=== PATIENT | female | born 1985 | race Caucasian/White ===

== ENCOUNTER → 2020-12-02 08:14 | Outpatient (CLI) | payer OTHER, SELFPAY ==
[2020-12-02 09:15] LABS: HCG Quantitative /Beta subunit 243.6 mIU/mL
== END ==
PROVIDERS: PCP Family Medicine; Referring Provider Obstetrics & Gynecology; Visit Provider Obstetrics & Gynecology
DX: N91.2 Amenorrhea, unspecified (principal)
CPT/HCPCS: 36415; 84702

== ENCOUNTER → 2020-12-06 08:32 | Outpatient (CLI) | payer OTHER, SELFPAY ==
[2020-12-06 09:38] LABS: HCG Quantitative /Beta subunit 991.8 mIU/mL
[2020-12-06 09:59] LABS: Thyroid Stimulating Hormone 1.63 uIU/mL (0.47-4.68)
== END ==
PROVIDERS: PCP Family Medicine; Referring Provider Obstetrics & Gynecology; Visit Provider Obstetrics & Gynecology
DX: Z34.91 Encounter for supervision of normal pregnancy, unspecified, first trimester (principal)
CPT/HCPCS: 36415; 84144; 84443; 84702

== ENCOUNTER → 2020-12-12 08:28 | Outpatient (CLI) | payer OTHER, SELFPAY ==
[2020-12-12 11:56] LABS: HCG Quantitative /Beta subunit 10486 mIU/mL
== END ==
PROVIDERS: PCP Family Medicine; Referring Provider Obstetrics & Gynecology; Visit Provider Obstetrics & Gynecology
DX: Z34.91 Encounter for supervision of normal pregnancy, unspecified, first trimester (principal)
CPT/HCPCS: 36415; 84702

== ENCOUNTER → 2020-12-19 08:21 | Outpatient (CLI) | payer OTHER, SELFPAY ==
--- NOTE | 2020-12-19 | DI.US.S_ITS ---
PROCEDURE: US OB <= 14 WEEKS FETUS INDICATIONS: INITIAL SIZING AND DATING OUTSIDE/PRIOR DATING DATA: Last menstrual period (LMP): 11/04/20 LMP-based estimated date of delivery (DAYNA): 08/11/21 First dating scan (date and location): 12/19/20, this study. Estimated date of delivery (DAYNA) from first dating scan: 08/12/21, +/-5 days. TECHNIQUE: Real-time scanning was performed of the fetus and maternal pelvic organs, with image documentation. Endovaginal scanning was also performed to better visualize the fetus and maternal ovaries. COMPARISON: None. FINDINGS: Embryo: [place]-rump length 5 mm correlates with a gestational age of 6 weeks 2 days, +/-5 days. Heart rate: 116 beats per minute. Measurement variability in dating: +/- 4 weeks by LMP, +/- 7 days by mean sac diameter (use before 6 weeks gestation if crown-rump length not able to be measured), +/- 5 days by crown-rump length (up to 8 weeks 6 days gestation), +/- 7 days by crown-rump length (up to 13 weeks 6 days gestation). Maternal organs: Normal considering gestational status. IMPRESSION: 6 week 2 day gestational age with delivery date projected to be centered on 08/12/21. Dictated by: Romario Dillon M.D. on 12/19/2020 at 9:19 Approved by: Romario Dillon M.D. on 12/19/2020 at 9:22
== END ==
PROVIDERS: PCP Family Medicine; Referring Provider Obstetrics & Gynecology; Visit Provider Obstetrics & Gynecology
DX: O09.811 Supervision of pregnancy resulting from assisted reproductive technology, first trimester (principal); Z36.87 Encounter for antenatal screening for uncertain dates; Z3A.01 Less than 8 weeks gestation of pregnancy
CPT/HCPCS: 76801; 76817

== ENCOUNTER → 2021-01-02 07:52 | Outpatient (CLI) | payer OTHER, SELFPAY ==
--- NOTE | 2021-01-02 07:53 | DI.US.S_ITS ---
PROCEDURE: US OB <= 14 WEEKS FETUS INDICATIONS: SUPERVISION OF OUTSIDE/PRIOR DATING DATA: Last menstrual period (LMP): 11/04/20. LMP-based estimated date of delivery (DAYNA): 08/11/22. First dating scan (date and location): 12/19/20. Estimated date of delivery (DAYNA) from first dating scan: 08/12/21. TECHNIQUE: Real-time scanning was performed of the fetus and maternal pelvic organs, with image documentation. Endovaginal scanning was also performed to better visualize the fetus and maternal ovaries. COMPARISON: [facility], OB <= 14 WEEKS FETUS, 12/19/2020, 8:33. FINDINGS: Embryo: Single intrauterine fetus is present. [place]-rump length measures 1.3 cm, 7 weeks 4 days. There is complex perigestational focal fluid collection measuring 1.1 x 0.7 x 0.5 cm. Heart rate: None detected. Measurement variability in dating: +/- 4 weeks by LMP, +/- 7 days by mean sac diameter (use before 6 weeks gestation if crown-rump length not able to be measured), +/- 5 days by crown-rump length (up to 8 weeks 6 days gestation), +/- 7 days by crown-rump length (up to 13 weeks 6 days gestation). Maternal organs: Ovaries grossly unremarkable in previous seen presumed left-sided corpus luteum is no longer visualized. The uterus measures 8.4 x 7.2 x 5.7 cm. The right ovary measures 2.4 x 2.2 x 1.6 cm. Left ovary measures 2.6 x 2.4 x 1.5 cm. There is a perigestational hypoechoic complex fluid collection presumably hematoma inferior to the gestational sac measuring 1.1 x 0.7 x 0.5 cm. IMPRESSION: Findings compatible with intrauterine demise. This was discussed with the patient in person at the time of the study. Results are also immediately telephoned to Dr. Ascencio triage nurse at the time of the study on 01/02/21. Small perigestational hemorrhage. Dictated by: Finesse Fregoso M.D. on 01/02/2021 at 10:41 Approved by: Finesse Fregoso M.D. on 01/02/2021 at 10:46
[2021-01-02 09:35] LABS: HCG Quantitative /Beta subunit 93575 mIU/mL
== END ==
PROVIDERS: PCP Family Medicine; Referring Provider Obstetrics & Gynecology; Visit Provider Obstetrics & Gynecology
DX: O09.811 Supervision of pregnancy resulting from assisted reproductive technology, first trimester (principal); O02.1 Missed abortion; Z3A.01 Less than 8 weeks gestation of pregnancy
CPT/HCPCS: 36415; 76801; 76817; 84702

== ENCOUNTER → 2021-01-05 10:10 | Outpatient (CLI) | payer OTHER, SELFPAY ==
[2021-01-05 12:18] LABS: COVID19 -Nasal RAPID Negative (Negative)
== END ==
PROVIDERS: PCP Family Medicine; Visit Provider Obstetrics & Gynecology
DX: Z20.822 Contact with and (suspected) exposure to COVID-19 (principal); Z01.812 Encounter for preprocedural laboratory examination
CPT/HCPCS: 87635

== ENCOUNTER 2021-01-06 15:06 | Day surgery (SDC) | payer OTHER, SELFPAY ==
[2021-01-05 12:03] VITALS: BMI 30.3
--- NOTE | 2021-01-06 | PATH_ITS ---
[facility] Accession Number: [id number] . 01 Material submitted: . product of conception - PRODUCTS OF CONCEPTION . 01 Clinical history: . SDC . 02 Diagnosis: Products of Conception: Chorionic villi present. Background decidualized endometrium. No evidence of neoplasm. MRV 01/10/2021 1239 Local . 02 Electronically signed: . Richie Chacon MD, PhD, Pathologist NPI- [id number] . 01 Gross description: . The specimen is received in formalin, labeled products of conception, and consists of multiple ramos-pink to red-brown fragments of soft tissue and clotted blood measuring 7.5 x 5.0 x 3.5 cm in aggregate. Limited chorionic villi are identified. No parts are identified. Poll Clerk sections are submitted in cassettes [id number]. ([id number]) /[facility] 01/07/2021 1359 Local . 02 Pathologist provided ICD-10: O02.1 . 02 CPT . 424641 Performed at: 01 [facility] [address] [facility], [place], [place] [id number] MD Wali Vann MD Phone: [phone] Performed at: 02 [facility] [address] [place], [place] [id number] MD Macarena Keita MD Phone: [phone]
[2021-01-06] MEDS: ACETAMINOPHEN 325 MG TABLET 975 MG PO (15:10)
[2021-01-06] MEDS: LACTATED RINGERS 1,000 ML 42 ML IV (15:11)
[2021-01-06 15:12] VITALS: BMI 30.3
[2021-01-06 15:17] VITALS: BP 119/77; PULSE 77; RESP 16; TEMP 37.1; O2SAT 99
--- NOTE | 2021-01-06 15:36 | PM.PREOP ---
Pre-operative Note COVID-19 COVID-19 status: Negative Result date/Date tested (Pos, Neg/Pending): 01/05/21 Interval Note History & Physical reviewed/Exam performed by Physician: Yes Changes to H&P: No H&P completed within 30 days and has changed as indicated here:: 01/05/21
--- NOTE | 2021-01-06 15:48 | SUR.OPER ---
Lithotomy on padded OR bed, head on pillow, arms secured on padded arm boards at <90 degrees abduction. Legs secured in padded yellow fins stirrups.
[2021-01-06 16:05] VITALS: BP 107/62; PULSE 74; RESP 16; TEMP 36.6; O2SAT 99
--- NOTE | 2021-01-06 16:06 | PM.GYNOP.1 ---
Operative Date/Time/Diagnoses Date of procedure: 01/06/21 Time of procedure: 16:06 Pre-op diagnosis: Missed Ab at 7 weeks gestation Post-op diagnosis: same Procedure & Clinicians Procedure: Procedures Operation Date: 01/06/21 16:00 Actual Procedure Side Surgeon p Suction Dilation and Curettage Dali Ascencio MD Indications: Missed Ab at 7 weeks gestation Surgeon: Dali Ascencio Anesthesia Type: General (LMA) Operative Notes Findings: 8 week size anteverted uterus Large amount of products of conception Closure Type: not applicable Specimen(s): products of conception Estimated blood loss (mL): 50 Blood products transfused: none Procedure in detail: The patient was taken to the operating room where she was placed in the dorsal supine position. After adequate LMA general anesthesia was achieved the patient was placed in the dorsal lithotomy position, and prepped and draped in the usual sterile fashion. A time-out was performed. A bivalve speculum was placed into the vagina and the anterior lip of the cervix was grasped with a single-tooth tenaculum. Cervical os was sequentially dilated to the # 8 Hegar dilator. The # 7 curved plastic curette passed easily into the endometrial cavity. Several passes with suction revealed a large amount of products of conception and fluid. The catheter was removed. Gentle sharp curettage was performed yielding minimal amount of tissue. Several more passes with suction revealed blood only. The instruments were removed from the uterus. The single-tooth tenaculum was removed from the anterior lip of the cervix. The bivalve speculum was removed from the vagina. Sponge, lap, and instrument counts were correct x2. The patient tolerated the procedure well, and was taken to PACU in stable condition. Complications: none Post-operative Condition: stable Disposition: PACU Plan for aftercare: Home after recovery
[2021-01-06 16:10] VITALS: BP 104/62; PULSE 71; RESP 16; O2SAT 100
[2021-01-06 16:15] VITALS: BP 112/68; PULSE 93; RESP 16; O2SAT 99
[2021-01-06 16:20] VITALS: BP 127/79; PULSE 88; RESP 13; TEMP 37; O2SAT 98
--- NOTE | 2021-01-06 16:20 | SUR.PHASEI ---
report given to Lissette SPENCE.
[2021-01-06 16:30] VITALS: BP 117/63; PULSE 67; RESP 16; TEMP 36.3; O2SAT 100
--- NOTE | 2021-01-06 16:48 | SUR.PHASEI ---
1630 Handover to Nuria Sanders. Pt transferred to OPD.
--- NOTE | 2021-01-06 17:17 | SUR.PHASEII ---
Nursing communication: Called Dr Ascencio to clarify patients RH status. Dr Ascencio stated pt is RH+ and no Rhogam injection needed.
== END 2021-01-06 17:00 | disposition home or self-care (01) ==
PROVIDERS: PCP Family Medicine; Referring Provider Obstetrics & Gynecology; Visit Provider Obstetrics & Gynecology
PROC: (CPT 58120; principal; 2021-01-06 16:00)
DX: O02.1 Missed abortion (principal)
CPT/HCPCS: 59820; J1100; J1885; J2250; J2405; J2704

== ENCOUNTER → 2021-01-23 08:47 | Outpatient (CLI) | payer OTHER, SELFPAY ==
[2021-01-23 10:44] LABS: HCG Quantitative /Beta subunit 82.4 mIU/mL
== END ==
PROVIDERS: PCP Family Medicine; Referring Provider Obstetrics & Gynecology; Visit Provider Obstetrics & Gynecology
DX: O02.1 Missed abortion (principal)
CPT/HCPCS: 36415; 84702

== ENCOUNTER → 2021-02-01 08:21 | Outpatient (CLI) | payer OTHER, SELFPAY ==
[2021-02-01 09:19] LABS: HCG Quantitative /Beta subunit 28.5 mIU/mL
== END ==
PROVIDERS: PCP Family Medicine; Referring Provider Obstetrics & Gynecology; Visit Provider Obstetrics & Gynecology
DX: O02.1 Missed abortion (principal)
CPT/HCPCS: 36415; 84702

== ENCOUNTER → 2021-02-08 08:39 | Outpatient (CLI) | payer OTHER, SELFPAY ==
[2021-02-08 10:03] LABS: HCG Quantitative /Beta subunit 10.9 mIU/mL
== END ==
PROVIDERS: PCP Family Medicine; Referring Provider Obstetrics & Gynecology; Visit Provider Obstetrics & Gynecology
DX: O02.1 Missed abortion (principal)
CPT/HCPCS: 36415; 84702

== ENCOUNTER → 2021-02-15 08:43 | Outpatient (CLI) | payer OTHER, SELFPAY ==
[2021-02-15 10:34] LABS: HCG Quantitative /Beta subunit 6.4 mIU/mL
== END ==
PROVIDERS: PCP Family Medicine; Referring Provider Obstetrics & Gynecology; Visit Provider Obstetrics & Gynecology
DX: O02.1 Missed abortion (principal)
CPT/HCPCS: 36415; 84702

== ENCOUNTER → 2021-03-01 08:51 | Outpatient (CLI) | payer OTHER, SELFPAY ==
[2021-03-01 10:50] LABS: HCG Quantitative /Beta subunit < 2.4 mIU/mL
== END ==
PROVIDERS: PCP Family Medicine; Referring Provider Obstetrics & Gynecology; Visit Provider Obstetrics & Gynecology
DX: O02.1 Missed abortion (principal)
CPT/HCPCS: 36415; 84702

== ENCOUNTER → 2021-03-27 12:44 | Outpatient (CLI) | payer OTHER, SELFPAY ==
--- NOTE | 2021-03-27 12:45 | DI.RAD.S_ITS ---
PROCEDURE: HL HYSTEROSAPINGOGRAPHY INDICATIONS: Treatment Monitoring for surrogacy COMPARISON: None. FINDINGS: Patient had a documented negative test prior to the study. Following speculum insertion, a balloon-tip catheter was inserted into the cervical canal, and secured by inflating the balloon. Contrast was then injected into the endometrial canal. Uterus: The uterine cavity appears normal in size and morphology, without synechiae or masses. Fallopian tubes: Both fallopian tubes fill with contrast, and appear normal in caliber and morphology. There is ready dispersion of contrast into the peritoneal cavity. IMPRESSION: Normal hysterosalpingogram. Dictated by: Amelia Velásquez MD, PhD on 03/27/2021 at 14:51 Approved by: Amelia Velásquez MD, PhD on 03/27/2021 at 14:52
== END ==
PROVIDERS: PCP Family Medicine; Referring Provider Obstetrics & Gynecology; Visit Provider Obstetrics & Gynecology
DX: Z33.3 Pregnant state, gestational carrier (principal); N97.8 Female infertility of other origin
CPT/HCPCS: 58340; 74740

== ENCOUNTER → 2021-04-10 07:39 | Outpatient (CLI) | payer OTHER, SELFPAY ==
--- NOTE | 2021-04-10 07:43 | DI.US.S_ITS ---
PROCEDURE: US PELVIC COMPLETE INDICATIONS: Surrogacy Planning, see scanned docs for instr TECHNIQUE: Real-time scanning was performed of the pelvic organs, with image documentation. Additional endovaginal scanning was necessary due to incomplete visualization of the adnexal and endometrial structures by transabdominal scanning. COMPARISON: [facility], US, US PELVIC COMPLETE, 03/29/2021, 12:26. FINDINGS: Uterus: Uterus is anteverted and normal in size at 8 x 4.7 x 3.4 cm. The myometrium is homogeneous. No fibroids identified. The endometrium measures 2 mm combined thickness. Cervix is within normal limits. Ovaries: The ovaries have a normal sonographic appearance. No adnexal masses are seen. A few ovarian follicles. -Dominant right ovarian follicle measuring 1 x 1 x 0.7 cm. -Largest left ovarian follicle measuring 0.5 x 0.4 cm. The right ovary measures 3.8 x 1.8 x 1.6 cm, with a calculated ovarian volume of 6 cc. The left ovary measures 2.7 x 2.5 x 1.5 cm, with a calculated ovarian volume of 5 cc. Other: No pathologic free abdominal or pelvic fluid. IMPRESSION: 1. Dominant right ovarian follicle measuring 1 cm. Largest left ovarian follicle measuring 0.5 cm. A few ovarian follicles. 2. Anteverted uterus. Endometrium measures 2 mm. We strive to produce accurate, complete, and clear reports of imaging services. To assist us in improving patient care, this report was composed using standard report templates and voice recognition software. Therefore, it may contain abnormal punctuation, insertions and/or omissions. Occasional wrong-word or sound-alike substitutions may occur. Though we review the report and make efforts to correct it, we do recommend that the report be read carefully in proper context to recognize any text inaccuracies. Dictated by: Addi Lion M.D. on 04/10/2021 at 8:38 Approved by: Addi Lion M.D. on 04/10/2021 at 8:44
[2021-04-10 09:21] LABS: Progesterone, Total 0.68 ng/mL
[2021-04-10 09:37] LABS: Estradiol, Total 20.4 pg/mL
== END ==
PROVIDERS: PCP Family Medicine; Referring Provider Obstetrics & Gynecology; Visit Provider Obstetrics & Gynecology
DX: N97.8 Female infertility of other origin (principal)
CPT/HCPCS: 36415; 76830; 76856; 82670; 84144

== ENCOUNTER → 2021-04-20 07:52 | Outpatient (CLI) | payer OTHER, SELFPAY ==
--- NOTE | 2021-04-20 07:55 | DI.US.S_ITS ---
PROCEDURE: US PELVIC COMPLETE INDICATIONS: SURROGACY PLANNING. EVALUATE LARGEST FOLLICLES BILATERAL TECHNIQUE: Real-time scanning was performed of the pelvic organs, with image documentation. Additional endovaginal scanning was necessary due to incomplete visualization of the adnexal and endometrial structures by transabdominal scanning. COMPARISON: None. FINDINGS: Uterus: Uterus is anteverted and normal in size at 8.5 x 5.8 x 3.2 cm. The myometrium is homogeneous. The endometrium measures 11.5 mm combined thickness. Uterus is sonographically normal. Ovaries: The right ovary measures 3.4 x 2.3 x 1.4 cm. The left ovary measures 2.8 x 2.5 x 1.5 cm. The ovaries have a normal sonographic appearance. Less than 12 follicles can be seen in each ovary. Largest right ovarian follicle measures 1.0 x 1.1 x 0.7 centimeters. Largest left ovarian follicle measures 0.9 x 0.7 x 0.7 centimeters. No adnexal masses are seen. Other: No pathologic free abdominal or pelvic fluid. IMPRESSION: Normal pelvic sonogram. Dictated by: Amelia Velásquez MD, PhD on 04/20/2021 at 8:47 Approved by: Amelia Velásquez MD, PhD on 04/20/2021 at 8:49 We strive to produce accurate, complete, and clear reports of imaging services. To assist us in improving patient care, this report was composed using standard report templates and voice recognition software. Therefore, it may contain abnormal punctuation, misrecognitions, insertions and/or omissions. Occasional wrong-word or sound-alike substitutions may occur. Though we review the report and make efforts to correct it, we do recommend that the report be read carefully in proper context to recognize any text inaccuracies.
[2021-04-20 09:06] LABS: HCG Quantitative /Beta subunit < 2.4 mIU/mL
[2021-04-20 09:22] LABS: Progesterone, Total 0.65 ng/mL
[2021-04-20 09:38] LABS: Estradiol, Total 242.5 pg/mL
== END ==
PROVIDERS: PCP Family Medicine; Referring Provider Obstetrics & Gynecology; Visit Provider Obstetrics & Gynecology
DX: N97.8 Female infertility of other origin (principal)
CPT/HCPCS: 36415; 76830; 76856; 82670; 84144; 84702

== ENCOUNTER → 2021-05-08 08:19 | Outpatient (CLI) | payer OTHER, SELFPAY ==
[2021-05-08 10:12] LABS: HCG Quantitative /Beta subunit < 2.4 mIU/mL
== END ==
PROVIDERS: PCP Obstetrics & Gynecology; Referring Provider Obstetrics & Gynecology; Visit Provider Obstetrics & Gynecology
DX: N97.9 Female infertility, unspecified (principal)
CPT/HCPCS: 36415; 84702

== ENCOUNTER → 2021-10-04 08:14 | Outpatient (CLI) | payer OTHER, SELFPAY ==
[2021-10-04 15:59] LABS: Estradiol, Total 11.9 pg/mL
== END ==
PROVIDERS: PCP Family Medicine
DX: Z31.83 Encounter for assisted reproductive fertility procedure cycle (principal)
CPT/HCPCS: 36415; 82670

== ENCOUNTER → 2021-10-13 14:35 | Outpatient (CLI) | payer OTHER, SELFPAY ==
--- NOTE | 2021-10-13 | DI.US.S_ITS ---
PROCEDURE: US TRANSVAGINAL COMPARISON: None. INDICATIONS: FERTILITY TESTING FINDINGS: Multiple grayscale color Doppler images of the pelvis were acquired transvaginally. Uterus is anteverted in uniform and echotexture measuring 8.6 x 5.4 x 4.1 cm. Combined endometrial thickness measures 12.5 mm. No intrauterine abnormalities identified. Visualized cervix appears unremarkable. Right ovary measures 2.2 x 3.0 x 2.1 cm. There are 3 follicles visualized. 1 follicle measures greater than 1 cm. It measures 1.1 x 1.2 x 1.0 cm. Left ovary measures 2.2 x 1.6 x 2.0 cm. There are a total of 4 follicles visualized with no follicles measuring greater than 1.0 cm. Largest follicle measures 0.7 x 0.9 x 0.6 cm. No suspicious ovarian or adnexal mass lesions on either side. No pathologic pelvic free fluid. IMPRESSION: Unremarkable sonographic appearance of the pelvis. There are 3 follicles visualized in the right ovary and 4 follicles in the left ovary with only 1 follicle measuring greater than 1 cm in size. It is visualized in the right ovary and measures 1.1 x 1.2 x 1.0 cm. Dictated by: Mayank Peng M.D. on 10/13/2021 at 16:22 Approved by: Mayank Peng M.D. on 10/13/2021 at 16:30
[2021-10-13 16:04] LABS: Estradiol, Total 608.1 pg/mL
== END ==
PROVIDERS: PCP Family Medicine; Referring Provider Obstetrics & Gynecology Reproductive Endocrinology; Visit Provider Obstetrics & Gynecology Reproductive Endocrinology
DX: Z31.41 Encounter for fertility testing (principal)
CPT/HCPCS: 36415; 76830; 82670

== ENCOUNTER → 2021-10-18 07:51 | Outpatient (CLI) | payer OTHER, SELFPAY ==
--- NOTE | 2021-10-18 07:55 | DI.US.S_ITS ---
PROCEDURE: US TRANSVAGINAL COMPARISON: [facility], , US TRANSVAGINAL, 10/13/2021, 16:09. INDICATIONS: ASSISTED FERTILITY TECHNIQUE: Transvaginal images of the pelvis and adnexa obtained. Grayscale and color Doppler images were obtained. FINDINGS: Uterus: Anteverted. 8.9 x 5.3 x 4.2 centimeters. Unremarkable echotexture. Endometrium measures 11 millimeters in thickness without a suspicious focal lesion or abnormal vascularity visualized. Right ovary: 2.9 x 1.7 x 2.0 centimeters. Unremarkable echotexture. Three follicles are visualized, 1 of which is greater than 1.0 centimeters in size. This follicle measures 1.2 x 1.2 x 0.9 centimeters. Left ovary: 2.2 x 1.6 x 1.4 centimeters. Unremarkable echotexture. Three follicles are visualized, none larger than 1.0 centimeters. Other: No pelvic free fluid visualized. IMPRESSION: 1. Unremarkable sonographic appearance of the uterus and ovaries. 2. Three follicles are visualized in each ovary. One follicle is greater than 1.0 centimeters, present in the right ovary, measuring 1.2 x 1.2 x 0.9 centimeters. Dictated by: Dennis Stern M.D. on 10/18/2021 at 9:33 Approved by: Dennis Stern M.D. on 10/18/2021 at 9:40
[2021-10-18 09:01] LABS: Progesterone, Total 0.49 ng/mL
== END ==
PROVIDERS: PCP Family Medicine; Referring Provider Obstetrics & Gynecology Reproductive Endocrinology; Visit Provider Obstetrics & Gynecology Reproductive Endocrinology
DX: Z31.83 Encounter for assisted reproductive fertility procedure cycle (principal)
CPT/HCPCS: 36415; 76830; 84144

== ENCOUNTER → 2021-10-20 08:28 | Outpatient (CLI) | payer OTHER, SELFPAY ==
[2021-10-20 09:59] LABS: Estradiol, Total 640.6 pg/mL
== END ==
PROVIDERS: PCP Family Medicine; Referring Provider Family Medicine; Visit Provider Family Medicine
DX: Z31.41 Encounter for fertility testing (principal); Z31.83 Encounter for assisted reproductive fertility procedure cycle
CPT/HCPCS: 36415; 82670; 84144

== ENCOUNTER → 2021-11-02 08:18 | Outpatient (CLI) | payer OTHER, SELFPAY ==
[2021-11-02 09:43] LABS: HCG Quantitative /Beta subunit 28.9 mIU/mL
== END ==
PROVIDERS: PCP Family Medicine; Referring Provider Obstetrics & Gynecology Reproductive Endocrinology; Visit Provider Obstetrics & Gynecology Reproductive Endocrinology
DX: Z31.83 Encounter for assisted reproductive fertility procedure cycle (principal)
CPT/HCPCS: 36415; 84702

== ENCOUNTER → 2021-11-04 08:01 | Outpatient (CLI) | payer OTHER, SELFPAY ==
[2021-11-04 09:07] LABS: HCG Quantitative /Beta subunit 54.9 mIU/mL
[2021-11-04 09:24] LABS: Estradiol, Total 501.7 pg/mL
== END ==
PROVIDERS: PCP Family Medicine; Referring Provider Obstetrics & Gynecology; Visit Provider Obstetrics & Gynecology
DX: Z31.83 Encounter for assisted reproductive fertility procedure cycle (principal)
CPT/HCPCS: 36415; 82670; 84144; 84702

== ENCOUNTER → 2021-11-06 08:01 | Outpatient (CLI) | payer OTHER, SELFPAY ==
[2021-11-06 09:15] LABS: HCG Quantitative /Beta subunit 135.1 mIU/mL
[2021-11-06 09:32] LABS: Estradiol, Total 484.8 pg/mL
== END ==
PROVIDERS: PCP Family Medicine; Referring Provider Obstetrics & Gynecology Reproductive Endocrinology; Visit Provider Obstetrics & Gynecology Reproductive Endocrinology
DX: Z31.83 Encounter for assisted reproductive fertility procedure cycle (principal)
CPT/HCPCS: 36415; 82670; 84144; 84702

== ENCOUNTER → 2021-11-16 07:41 | Outpatient (CLI) | payer OTHER, SELFPAY ==
--- NOTE | 2021-11-16 07:43 | DI.US.S_ITS ---
PROCEDURE: US OB <= 14 WEEKS FETUS INDICATIONS: Encounter for assisted reproductive process OUTSIDE/PRIOR DATING DATA: Last menstrual period (LMP): 10/05/2021 LMP-based estimated date of delivery (DAYNA): 07/12/2022 First dating scan (date and location): Today at [facility] 11/16/2021 Estimated date of delivery (DAYNA) from first dating scan: 07/14/2022 TECHNIQUE: Real-time scanning was performed of the fetus and maternal pelvic organs, with image documentation. Endovaginal scanning was also performed to better visualize the fetus and maternal ovaries. COMPARISON: [facility], , OB <= 14 WEEKS FETUS, 01/02/2021, 8:07. FINDINGS: Embryo: Early intrauterine gestation is visualized Heart rate: 104 beats per minute. Mean gestational sac diameter of 0.72 cm. CRL of 0.23 cm. Corresponds to a gestational age of 5 weeks and 5 days. Yolk sac is present at 0.3 cm. Maternal organs: Adnexal structures seen, within normal limits. IMPRESSION: Intrauterine gestation seen at 5 weeks and 5 days by crown-rump length, concordant with the reported LMP. We strive to produce accurate, complete, and clear reports of imaging services. To assist us in improving patient care, this report was composed using standard report templates and voice recognition software. Therefore, it may contain abnormal punctuation, insertions and/or omissions. Occasional wrong-word or sound-alike substitutions may occur. Though we review the report and make efforts to correct it, we do recommend that the report be read carefully in proper context to recognize any text inaccuracies. Dictated by: Lazarus Patel M.D. on 11/16/2021 at 9:18 Approved by: Lazarus Patel M.D. on 11/16/2021 at 9:22
[2021-11-16 09:39] LABS: Estradiol, Total 550.4 pg/mL
== END ==
PROVIDERS: PCP Family Medicine; Referring Provider Obstetrics & Gynecology; Visit Provider Obstetrics & Gynecology
DX: Z31.83 Encounter for assisted reproductive fertility procedure cycle (principal); Z36.89 Encounter for other specified antenatal screening; Z3A.01 Less than 8 weeks gestation of pregnancy
CPT/HCPCS: 36415; 76801; 76817; 82670; 84144

== ENCOUNTER → 2021-12-07 07:46 | Outpatient (CLI) | payer OTHER, SELFPAY ==
--- NOTE | 2021-12-07 | DI.US.S_ITS ---
PROCEDURE: US OB <= 14 WEEKS FETUS INDICATIONS: Dating and viability. OUTSIDE/PRIOR DATING DATA: Last menstrual period (LMP): 10/05/2021. LMP-based estimated date of delivery (DAYNA): 07/12/2022. First dating scan (date and location): 11/16/2021, [facility]. Estimated date of delivery (DAYNA) from first dating scan: 07/14/2022. TECHNIQUE: Real-time scanning was performed of the fetus and maternal pelvic organs, with image documentation. COMPARISON: [facility], US, OB <= 14 WEEKS FETUS, 11/16/2021, 9:06. FINDINGS: Embryo: [place]-rump length of 2.29 cm, 9 weeks 0 days. Heart rate: 173 beats per minute No perigestational collections visualized. Maternal organs: Ovaries are unremarkable in appearance. IMPRESSION: Single living intrauterine with gestational age by crown rump length of 9 weeks 0 days. We strive to produce accurate, complete, and clear reports of imaging services. To assist us in improving patient care, this report was composed using standard report templates and voice recognition software. Therefore, it may contain abnormal punctuation, insertions and/or omissions. Occasional wrong-word or sound-alike substitutions may occur. Though we review the report and make efforts to correct it, we do recommend that the report be read carefully in proper context to recognize any text inaccuracies. Dictated by: Dennis Stern M.D. on 12/07/2021 at 9:25 Approved by: Dennis Stern M.D. on 12/07/2021 at 9:31
== END ==
PROVIDERS: PCP Family Medicine; Referring Provider Obstetrics & Gynecology; Visit Provider Obstetrics & Gynecology
DX: Z31.83 Encounter for assisted reproductive fertility procedure cycle (principal); Z3A.09 9 weeks gestation of pregnancy; Z36.87 Encounter for antenatal screening for uncertain dates
CPT/HCPCS: 76801